=== PATIENT | female | born 1950 | race Caucasian/White ===

== ENCOUNTER 2023-06-20 11:18 | Emergency (ER) | payer OTHER ==
[~2023-06-20] VITALS: Ht 165.1 cm; Wt 72.6 kg
[2023-06-20 11:35] VITALS: BP_SYST 150; PULSE 59; RESP 20; TEMP 97.9; O2SAT 97
[2023-06-20 11:54] LABS: BASOPHILS % (AUTO) 0.4 % (0.0-2.0); EOSINOPHILS % (AUTO) 0.4 % (0.0-4.0); HEMATOCRIT 44.5 % (36-48); HEMOGLOBIN 14.7 g/dL (12.0-16.0); LYMPHOCYTES # (AUTO) 2.2 K/uL (1.0-5.5); LYMPHOCYTES % (AUTO) 40.9 % (20.5-51.5); MEAN CORPUSCULAR HEMOGLOBIN 29 pg (27-31); MEAN CORPUSCULAR HGB CONC 33 % (32-36); MEAN CORPUSCULAR VOLUME 86 fL (79.0-98.0); MONOCYTES # (AUTO) 0.3 K/uL (0.0-1.0); MONOCYTES % (AUTO) 6.6 % (1.7-9.3); NEUTROPHILS # (AUTO) 2.7 K/uL (1.8-7.7); NEUTROPHILS % (AUTO) 51.7 % (40.0-70.0); PLATELET COUNT (AUTO) 280 K/uL (130-430); RED BLOOD CELL COUNT(AUTO) 5.15 MIL/uL (4.2-6.2); RED CELL DISTRIBUTION WIDTH 13.4 % (9.0-15.0); WHITE BLOOD COUNT (AUTO) 5.3 K/uL (4.8-10.8)
[2023-06-20] MEDS ORDERED: NACL 0.9% 1,000 ML IV ONE (12:00)
[2023-06-20 12:07] LABS: ANION GAP 13 (5-15); CALCIUM 8.4 mg/dL (8.4-11.0); CARBON DIOXIDE 22 mmol/L (23-29); CHLORIDE 103 mmol/L (98-107); CREATININE 0.74 mg/dL (0.55-1.30); GLUCOSE 200 mg/dL (74-106); SODIUM SERUM 138 mmol/L (136-145); UREA NITROGEN, BLOOD 10 mg/dL (8-21)
[2023-06-20 12:13] LABS: ALANINE AMINOTRANSFERASE 92 U/L (12-78); ALBUMIN 3.8 g/dL (3.4-4.8); ASPARTATE AMINOTRANSFERASE 59 U/L (10-37); TOTAL BILIRUBIN 1.1 mg/dL (0.0-1.0); TOTAL PROTEIN, SERUM 7.5 g/dL (6.4-8.3)
[2023-06-20 13:01] LABS: INFLUENZA TYPE A negative (NEGATIVE); INFLUENZA TYPE B NEGATIVE (NEGATIVE)
[2023-06-20] MEDS ORDERED: DOXY100T2 PO (13:17)
[2023-06-20 14:18] VITALS: BP_SYST 150; PULSE 59; RESP 20; TEMP 97.9; O2SAT 97
== END 2023-06-20 14:16 | disposition home or self-care (01) ==
LOC: SED 11:18
DX: U07.1 COVID-19 (principal); J18.9 Pneumonia, unspecified organism; E86.0 Dehydration; R53.1 Weakness; R50.9 Fever, unspecified; M79.10 Myalgia, unspecified site; Z79.899 Other long term (current) drug therapy
CPT/HCPCS: 99284; 96360; 87426; 80053; 85025; 85379; 84484; 36415; 93005; 87804 ×2; J7030